=== PATIENT | male | born 1990 | race Caucasian/White ===

== ENCOUNTER 2017-11-29 20:43 | Emergency (ER) | payer SELFPAY ==
[~2017-11-29] VITALS: Ht 170.2 cm; Wt 71.7 kg
[2017-11-29 20:46] VITALS: BP 132/74; PULSE 78; RESP 18; TEMP 97.6; O2SAT 100
[2017-11-29] MEDS ORDERED: LIDOCAINE HCL 1% PF 30 ML VIAL SQ ONE (21:15)
[2017-11-29] MEDS ORDERED: BACT800T5 PO (21:23)
[2017-11-29] MEDS ORDERED: CEPH-460 PO (21:23)
--- NOTE | 2017-11-29 21:25 | PD ---
HPI Chief Complaint: Skin Problem Time Seen by Provider: 20:56 Travel History International Travel<30 days: No Contact w/Intl Traveler<30days: No Traveled to known affect area: No History of Present Illness HPI This is a 27-year-old male who presents to the emergency department with 2 days of swelling on the left back of his hand, constant, moderate severity. Yesterday he tried to poke it with a pen and didn't get any drainage from it. he does say he feels a little feverish. He denies any history of IV drug use but has had a facial abscess in the past. [facility] Past Medical History Diminished Hearing: No Influenza Vaccination: No ?: Not Social History Alcohol Use: Yes (socially) Tobacco Use: Yes (1 PPD) Substance Use: No Allergies-Medications (Allergen,Severity, Reaction): Coded Allergies: No Known Allergies (Verified Allergy, Unknown, 11/29/17) Reported Meds & Prescriptions Reported Meds & Active Scripts Active No Active Prescriptions or Reported Medications Review of Systems General / Constitutional: Positive: Fever, Chills Respiratory: No: Cough, Shortness of Breath Physical Exam Narrative GENERAL: Well-appearing, no acute distress, nontoxic SKIN: 2 cm abscess on the dorsal aspect of the left hand with some surrounding erythema and induration HEAD: Atraumatic. Normocephalic. ENT: No nasal bleeding or discharge. Moist mucous membranes MUSCULOSKELETAL: No obvious deformities. No clubbing. No cyanosis. No edema. NEUROLOGICAL: Awake and alert. No obvious cranial nerve deficits. Motor grossly within normal limits. Normal speech. PSYCHIATRIC: Appropriate mood and affect; insight and judgment normal. Data Data Last Documented VS Vital Signs Date Time Temp Pulse Resp B/P (MAP) Pulse Ox O2 Delivery O2 Flow Rate FiO2 11/29/17 20:46 97.6 78 18 132/74 (93) 100 Orders Orders Lidocaine Pf 1% Inj (Xylocaine-Mpf 1% In (11/29/17 21:15) Wound Culture And Gram Stain (11/29/17 21:18) MDM Medical Decision Making Medical Screen Exam Complete: Yes Emergency Medical Condition: Yes Interpretation(s) Afebrile, no tachycardia, normotensive Differential Diagnosis Abscess, cellulitis, sepsis Narrative Course This is a 27-year-old male who presents to the emergency department with an abscess on the left dorsal aspect of his hand. I performed an I &D and obtained 2 cc of purulent drainage. Patient tolerated the procedure well. He' ll be discharged on antibiotics and was asked to return to the emergency department in 48 hours for a wound check if he is not improved. Procedures Procedure Narrative Incision & Drainage: 3 cc of 1% lidocaine were injected into the left dorsal aspect of the hand. An 11 blade scalpel was used to incise the area superficially. 2 cc of thick purulent drainage was expressed. A culture was obtained. Patient tolerated the procedure well. He had a normal neuro and tendon exam following the procedure. Diagnosis Primary Impression: Abscess Patient Instructions: General Instructions Additional Instructions: If you develop fever, increasing redness, warmth, or spreading of your infection , or severe pain return to the emergency department immediately as you may require antibiotics through your IV. Complete your course of antibiotics as prescribed. Return to the emergency department in 48 hours for a checkup if your abscess has not resolved. Med/Other Pt SpecificInfo: Prescription(s) given Scripts Cephalexin (Keflex) 500 Mg Cap 500 MG PO Q12H for Infection for 10 Days, #20 CAP 0 Refills Prov: Tsering Mar MD 11/29/17 Sulfamethoxazole-Trimethoprim (Bactrim DS) 800-160 Mg Tab 1 TAB PO BID for Infection, #20 TAB 0 Refills Prov: Tsering Mar MD 11/29/17 Disposition: 01 DISCHARGE HOME Condition: Stable Tsering Mar MD Nov 29, 2017 21:25
== END 2017-11-29 22:10 | disposition home or self-care (01) ==
LOC: PHEFT 20:43
DX: L02.01 Cutaneous abscess of face (principal); B95.62 Methicillin resistant Staphylococcus aureus infection as the cause of diseases classified elsewhere; F17.200 Nicotine dependence, unspecified, uncomplicated
CPT/HCPCS: 10060; 86403; 87070; 87186; 87205

== ENCOUNTER 2018-04-08 11:05 | Emergency (ER) | payer SELFPAY ==
[~2018-04-08] VITALS: Ht 167.6 cm; Wt 70.0 kg
[~2018-04-08 11:05] MED LIST: BACT800T5 PO; CEPH-460 PO
[2018-04-08 11:11] VITALS: BP 142/89; PULSE 79; RESP 20; TEMP 98.4; O2SAT 100
[2018-04-08] MEDS ORDERED: CEPH-460 PO (11:28)
[2018-04-08] MEDS ORDERED: MAGICADU2 SWISH-SWAL (11:28)
[2018-04-08] MEDS ORDERED: IBUP-232 PO (11:35)
--- NOTE | 2018-04-08 11:35 | PD ---
HPI Chief Complaint: Laceration/Skin Injury Time Seen by Provider: 11:15 Travel History International Travel<30 days: No Contact w/Intl Traveler<30days: No Traveled to known affect area: No History of Present Illness HPI 27-year-old male presents to the ED for evaluation of laceration of the tongue. Patient states that he bit his tongue 2 days ago. He states that over the course the last couple days it has become more painful and swollen. He is concerned that he may have an infection. He continues to smoke cigarettes. He denies fever, chills, nausea, vomiting, difficulty swallowing, sore throat, neck pain. He has been treating by rinsing with peroxide this morning. PFSH Past Medical History Medical History: Denies Significant Hx Diminished Hearing: No Influenza Vaccination: No Past Surgical History Surgical History: No Previous Surgery Social History Alcohol Use: Yes (socially) Tobacco Use: Yes (1 PPD) Substance Use: No Allergies-Medications (Allergen,Severity, Reaction): Coded Allergies: No Known Allergies (Verified Allergy, Unknown, 11/29/17) Reported Meds & Prescriptions Reported Meds & Active Scripts Active Ibuprofen 600 Mg Tab 600 Mg PO Q8H PRN Magic Mouthwash Adult Liq (Multi-Ingredient Mouthwash/Gargle) 120 Ml Susp 5 Ml SWISH-SWAL ACHS Each 5mL contains: Nystatin 200,000units, Diphenhydramine 4.25mg, Viscous Lidocaine 10mg, Lim syrup 0.8 mL Swish and spit after smoking and at least 3-4 times a day. Keflex (Cephalexin) 500 Mg Cap 500 Mg PO Q8H 10 Days Keflex (Cephalexin) 500 Mg Cap 500 Mg PO Q12H 10 Days Bactrim DS (Sulfamethoxazole-Trimethoprim) 800-160 Mg Tab 1 Tab PO BID Review of Systems Except as stated in HPI: all other systems reviewed are Neg Physical Exam Narrative GENERAL: Well-nourished, well-developed nontoxic-appearing white male in no acute distress. SKIN: Warm and dry. HEAD: Normocephalic. Atraumatic. EYES: No scleral icterus. No injection or drainage. PERRLA. EOMI. ENT: Pearly bower tympanic membranes bilaterally. Nasal mucosa is moist. Oropharynx without erythema, edema or exudate. DENTAL: No loose or chipped teeth. No malocclusion. Good dentition overall. There is a 1 cm coin shaped lesion on the dorsal tip of the tongue. Localized erythema is noted. No other intraoral lesions noted. NECK: Supple, trachea midline. No JVD or lymphadenopathy. CARDIOVASCULAR: Regular rate and rhythm without murmurs, gallops, or rubs. RESPIRATORY: Breath sounds clear and equal bilaterally. No accessory muscle use. GASTROINTESTINAL: Abdomen soft, non-tender, nondistended. + Bowel sounds MUSCULOSKELETAL: No cyanosis, or edema. Full, active range of motion. Strength 5/5. Neurovascularly intact. BACK: Nontender without obvious deformity. No CVA tenderness. Data Data Last Documented VS Vital Signs Date Time Temp Pulse Resp B/P (MAP) Pulse Ox O2 Delivery O2 Flow Rate FiO2 04/08/18 11:11 98.4 79 20 142/89 (106) 100 Orders Orders Ibuprofen (Motrin) (04/08/18 11:45) Ed Discharge Order (04/08/18 11:36) MDM Medical Decision Making Medical Screen Exam Complete: Yes Emergency Medical Condition: Yes Differential Diagnosis Tongue laceration versus tongue lesion versus burn versus candidiasis versus other Narrative Course 27-year-old male presents to the ED for evaluation of laceration of the tongue. Patient states that he bit his tongue 2 days ago. He states that over the course the last couple days it has become more painful and swollen. He is concerned that he may have an infection. He continues to smoke cigarettes. He denies fever, chills, nausea, vomiting, difficulty swallowing, sore throat, neck pain. He has been treating by rinsing with peroxide this morning. Patient is afebrile on presentation. On exam there is a coin shaped abrasion/ laceration of the dorsal aspect of the tip of the tongue. Concerned that this looks more like a burn or lesion. I question the patient extensively but maintains that he hit his tongue 2 days ago. Remaining ENT exam was unremarkable. Patient's prescribed 600 mg ibuprofen, Magic mouthwash as needed for pain. Also prescribed a course of Keflex. He is instructed to return to use the medications as prescribed, eat a soft, bland diet for the next few days , return to the ED for worsening symptoms. He indicated understanding of instructions. He is stable and discharged home. Diagnosis Primary Impression: Laceration of tongue without complication Qualified Codes: S01.512A - Laceration without foreign body of oral cavity, initial encounter Referrals: Kevin Verduzco MD Oral Maxillofacial Surgeon Additional Instructions: Rest, hydrate. Stop smoking. Eat a soft diet for the next few days. Avoid spicy or salty food. Begin antibiotics today and take them until every dose is gone. Use swish and spit medication after each cigarette and at least 3-4 times per day. Follow-up with the oral maxillofacial surgeon. Return to the ED for worsening symptoms or any urgent or emergent medical condition. Med/Other Pt SpecificInfo: Prescription(s) given Scripts Ibuprofen (Ibuprofen) 600 Mg Tab 600 MG PO Q8H Y for PAIN, #12 TAB 0 Refills Prov: Janeen Mccauley MD 04/08/18 Mwrjwroz-Tcwoowqqltvgysv-Ciafuaech Liq (Magic Mouthwash Adult Liq) 120 Ml Susp 5 ML SWISH-SWAL ACHS for Mouth sores, #120 ML 0 Refills Each 5mL contains: Nystatin 200,000units, Diphenhydramine 4.25mg, Viscous Lidocaine 10mg, Lim syrup 0.8 mL Swish and spit after smoking and at least 3-4 times a day. Prov: Janeen Mccauley MD 04/08/18 Cephalexin (Keflex) 500 Mg Cap 500 MG PO Q8H for Infection for 10 Days, #30 CAP 0 Refills Prov: Janeen Mccauley MD 04/08/18 Disposition: 01 DISCHARGE HOME Condition: Stable [place] April 08, 2018 11:34
[2018-04-08] MEDS ORDERED: IBUPROFEN 600 MG TAB PO ONE (11:45)
== END 2018-04-08 12:52 | disposition home or self-care (01) ==
LOC: NEPD 11:05
DX: S01.512A Laceration without foreign body of oral cavity, initial encounter (principal); F17.200 Nicotine dependence, unspecified, uncomplicated; X58.XXXA Exposure to other specified factors, initial encounter
CPT/HCPCS: 99283